=== PATIENT | female | born 1965 | race Caucasian/White ===

== ENCOUNTER 2021-08-21 20:04 | Inpatient (IN) ==
[2021-08-22] MEDS ORDERED: Acetaminophen 325 MG TABLET PO PRN (00:35)
[2021-08-22] MEDS ORDERED: Naloxone 0.4 MG/ML INJ IVP PRN (00:35)
[2021-08-22] MEDS ORDERED: Melatonin 3 MG TABLET PO PRN (00:35)
[2021-08-22] MEDS: *HR* HYDROcodone/Acet 5/325 mg TABLET PO PRN ×2 (01:08→11:34)
[2021-08-22] MEDS ORDERED: Isovue-370 500 ML BOTTLE IVP ONE (01:35)
[2021-08-22] MEDS ORDERED: *HR* HYDROmorphone (PF) 1 MG/ML SYRINGE IVP ONE (02:21)
[2021-08-22] MEDS ORDERED: Morphine Sulfate 2 MG/ML SYRINGE IVP ONE (05:36)
[2021-08-22 06:33] LABS: Hematocrit 40.5 % (35.3-44.9); Hemoglobin 12.8 g/dL (11.5-15.4); Mean Corpuscular HGB Conc 31.6 g/dL (31.6-35.5); Mean Corpuscular Volume 88.6 fL (83.0-100.0); Platelet Count 295 K/mcL (140-400); Red Blood Count 4.57 M/mcL (3.82-4.97); Red Cell Distribution Width 12.8 % (11.5-14.5); White Blood Count 9.8 K/mcL (4.3-11.1)
[2021-08-22 06:34] LABS: Basophils # 0.1 K/mcL (0.0-0.2); Basophils % 0.5 %; Eosinophils # 0.2 K/mcL (0.0-0.6); Immature Granulocytes % 0.4 % (0-4); Monocytes % 9.9 %; Neutrophils # 6.6 K/mcL (1.6-8.9); Segmented Neutrophils % 67.2 %
[2021-08-22 06:50] LABS: INR 1.1; Prothrombin Time 12.4 Seconds (9.4-12.1)
[2021-08-22 06:53] LABS: Activated Partial Thrombo Time 33.5 Seconds (26.0-36.0)
[2021-08-22 06:55] LABS: BUN/Creatinine Ratio 11 (6-26); Blood Urea Nitrogen 7 mg/dL (6-20); Calcium 8.7 mg/dL (8.6-10.3); Carbon Dioxide 28 mEq/L (23-29); Chloride 105 mEq/L (98-107); Glucose 103 mg/dL (70-105); Magnesium 2.3 mg/dL (1.6-2.6); Osmolality,Calculated 288 (280-300); Potassium 4.1 mEq/L (3.5-5.1); Sodium 140 mEq/L (136-145); eGFR For African Americans > 60 (> 60); eGFR For Non-African Americans > 60 (> 60)
[2021-08-22] MEDS: MetroNIDAZOLE 500 MG/100 ML 500 MG/100 ML BAG IVPB SCH ×2 (09:03→16:47)
[2021-08-22] MEDS: Ondansetron ODT 4 MG TAB.RAPDIS SL PRN ×2 (11:34→20:27)
[2021-08-22] MEDS: 0.9 % Sodium Chloride 1,000 ML IVC SCH (16:47)
[2021-08-22] MEDS: FLUoxetine 20 MG CAPSULE PO SCH (19:56)
[2021-08-23] MEDS: MetroNIDAZOLE 500 MG/100 ML 500 MG/100 ML BAG IVPB SCH ×4 (00:50→23:05)
[2021-08-23 06:23] LABS: Basophils # 0.1 K/mcL (0.0-0.2); Basophils % 0.5 %; Eosinophils # 0.2 K/mcL (0.0-0.6); Eosinophils % 1.7 %; Hematocrit 37.9 % (35.3-44.9); Immature Granulocytes % 0.3 % (0-4); Lymphocytes # 1.9 K/mcL (0.6-4.6); Lymphocytes % 16.4 %; Mean Corpuscular HGB Conc 31.7 g/dL (31.6-35.5); Mean Corpuscular Volume 88.3 fL (83.0-100.0); Mean Platelet Volume 10.5 fL (9.4-12.4); Monocytes # 0.9 K/mcL (0.0-1.3); Monocytes % 7.9 %; Neutrophils # 8.6 K/mcL (1.6-8.9); Platelet Count 298 K/mcL (140-400); Red Blood Count 4.29 M/mcL (3.82-4.97); Red Cell Distribution Width 12.3 % (11.5-14.5); Segmented Neutrophils % 73.2 %; White Blood Count 11.7 K/mcL (4.3-11.1)
[2021-08-23 06:28] LABS: INR 1.2; Prothrombin Time 13.2 Seconds (9.4-12.1)
[2021-08-23 06:39] LABS: BUN/Creatinine Ratio 15 (6-26); Blood Urea Nitrogen 8 mg/dL (6-20); Calcium 8.9 mg/dL (8.6-10.3); Carbon Dioxide 25 mEq/L (23-29); Chloride 104 mEq/L (98-107); Glucose 81 mg/dL (70-105); Osmolality,Calculated 283 (280-300); Potassium 3.8 mEq/L (3.5-5.1); Sodium 138 mEq/L (136-145); eGFR For African Americans > 60 (> 60); eGFR For Non-African Americans > 60 (> 60)
[2021-08-23] MEDS ORDERED: Fluconazole 400 MG/200 ML 400 MG/200 ML BAG IVPB SCH (09:00)
[2021-08-23] MEDS ORDERED: estradioL 0.5 MG TABLET PO SCH (09:00)
[2021-08-23] MEDS: 0.9 % Sodium Chloride 1,000 ML IVC SCH ×2 (09:12→17:09)
[2021-08-23] MEDS: FLUoxetine 20 MG CAPSULE PO SCH (09:14)
[2021-08-23] MEDS ORDERED: Ringers Solution, Lactated 1,000 ML IVC SCH (10:00)
[2021-08-23] MEDS ORDERED: Ondansetron 4 MG/2 ML VIAL IVP PRN (10:01)
[2021-08-23] MEDS ORDERED: *HR* FentaNYL (PF) 100 MCG/2 ML VIAL ONE (10:47)
[2021-08-23] MEDS ORDERED: *HR* Midazolam HCl 2 MG/2 ML VIAL ONE (10:48)
[2021-08-23] MEDS ORDERED: *HR* Propofol 200 MG/20 ML VIAL IVP ONE (10:48)
[2021-08-23] MEDS ORDERED: Lidocaine -MPF 2% 5 ML VIAL ONE (10:50)
[2021-08-23] MEDS ORDERED: Ondansetron 4 MG/2 ML VIAL ONE ×2 (10:52→14:30)
[2021-08-23] MEDS ORDERED: *HR* Rocuronium Bromide 50 MG/5 ML VIAL ONE ×2 (10:52→13:03)
[2021-08-23] MEDS ORDERED: Lidocaine HCL 4 ML Topical Solution (Laryng-O-Jet Kit Sterile Pak) TP ONE (10:52)
[2021-08-23] MEDS ORDERED: EPHEDrine 50 MG/ML VIAL ONE (11:47)
[2021-08-23] MEDS ORDERED: *HR* HYDROMORPHONE 2 MG/ML VIAL ONE (13:48)
[2021-08-23] MEDS ORDERED: Sugammadex Sodium 200 MG/2 ML VIAL IV ONE (13:48)
[2021-08-23] MEDS ORDERED: *HR* HYDROmorphone PF 0.5 MG/0.5 ML SYRINGE ONE ×2 (14:27→14:42)
[2021-08-23] MEDS: *HR* HYDROmorphone PF 0.5 MG/0.5 ML SYRINGE IVP PRN ×2 (14:29→14:43)
[2021-08-23] MEDS ORDERED: Naloxone 0.4 MG/ML INJ IVP PRN (15:14)
[2021-08-23] MEDS: Ketorolac 30 MG/ML VIAL IVP SCH ×2 (17:10→23:02)
[2021-08-23] MEDS: Acetaminophen IV 1,000 MG/100 ML BAG IVPB SCH ×2 (18:32→23:03)
[2021-08-24] MEDS: Ketorolac 30 MG/ML VIAL IVP SCH ×4 (05:24→23:08)
[2021-08-24] MEDS: Acetaminophen IV 1,000 MG/100 ML BAG IVPB SCH ×4 (05:25→23:08)
[2021-08-24] MEDS: 0.9 % Sodium Chloride 1,000 ML IVC SCH ×2 (05:27→18:18)
[2021-08-24 06:40] LABS: Basophils % 0.4 %; Eosinophils % 0.4 %; Hematocrit 32.2 % (35.3-44.9); Immature Granulocytes % 0.3 % (0-4); Lymphocytes # 1.7 K/mcL (0.6-4.6); Lymphocytes % 17.4 %; Mean Corpuscular HGB Conc 32.3 g/dL (31.6-35.5); Mean Corpuscular Hemoglobin 28.4 pg (28.0-33.3); Mean Platelet Volume 10.5 fL (9.4-12.4); Monocytes # 1.5 K/mcL (0.0-1.3); Monocytes % 15.1 %; Neutrophils # 6.5 K/mcL (1.6-8.9); Platelet Count 316 K/mcL (140-400); Red Blood Count 3.66 M/mcL (3.82-4.97); Red Cell Distribution Width 12.3 % (11.5-14.5); Segmented Neutrophils % 66.4 %; White Blood Count 9.8 K/mcL (4.3-11.1)
[2021-08-24 06:41] LABS: Hemoglobin 10.4 g/dL (11.5-15.4)
[2021-08-24 07:29] LABS: BUN/Creatinine Ratio 19 (6-26); Blood Urea Nitrogen 9 mg/dL (6-20); Calcium 7.9 mg/dL (8.6-10.3); Carbon Dioxide 26 mEq/L (23-29); Chloride 106 mEq/L (98-107); Glucose 106 mg/dL (70-105); Magnesium 1.7 mg/dL (1.6-2.6); Osmolality,Calculated 285 (280-300); Potassium 3.7 mEq/L (3.5-5.1); Sodium 138 mEq/L (136-145); eGFR For African Americans > 60 (> 60); eGFR For Non-African Americans > 60 (> 60)
[2021-08-24] MEDS: MetroNIDAZOLE 500 MG/100 ML 500 MG/100 ML BAG IVPB SCH ×3 (09:15→23:43)
[2021-08-24] MEDS: Pantoprazole 40 MG VIAL IVP SCH (09:16)
[2021-08-24] MEDS: Fluconazole 400 MG/200 ML 400 MG/200 ML BAG IVPB SCH (09:16)
[2021-08-24] MEDS ORDERED: Famotidine 20 MG/2 ML VIAL IVP ONE (19:58)
[2021-08-24] MEDS ORDERED: Prochlorperazine 10 MG/2 ML VIAL IVP PRN (23:16)
[2021-08-25] MEDS: *HR* LORazepam 2 MG/ML VIAL IVP PRN (04:03)
[2021-08-25 05:12] LABS: Basophils # 0.1 K/mcL (0.0-0.2); Basophils % 0.5 %; Eosinophils # 0.4 K/mcL (0.0-0.6); Eosinophils % 3.1 %; Hematocrit 28.2 % (35.3-44.9); Hemoglobin 9.5 g/dL (11.5-15.4); Immature Granulocytes % 0.4 % (0-4); Lymphocytes # 1.4 K/mcL (0.6-4.6); Lymphocytes % 10.6 %; Mean Corpuscular HGB Conc 33.7 g/dL (31.6-35.5); Mean Corpuscular Hemoglobin 29.4 pg (28.0-33.3); Mean Corpuscular Volume 87.3 fL (83.0-100.0); Mean Platelet Volume 9.7 fL (9.4-12.4); Monocytes # 1.4 K/mcL (0.0-1.3); Monocytes % 10.6 %; Neutrophils # 9.9 K/mcL (1.6-8.9); Platelet Count 305 K/mcL (140-400); Red Blood Count 3.23 M/mcL (3.82-4.97); Red Cell Distribution Width 12.7 % (11.5-14.5); Segmented Neutrophils % 74.8 %; White Blood Count 13.3 K/mcL (4.3-11.1)
[2021-08-25] MEDS: 0.9 % Sodium Chloride 1,000 ML IVC SCH ×5 (05:15→23:04)
[2021-08-25] MEDS: Acetaminophen IV 1,000 MG/100 ML BAG IVPB SCH ×2 (05:16→12:12)
[2021-08-25] MEDS: Ketorolac 30 MG/ML VIAL IVP SCH ×4 (05:16→23:04)
[2021-08-25 05:24] LABS: BUN/Creatinine Ratio 21 (6-26); Blood Urea Nitrogen 9 mg/dL (6-20); Calcium 7.6 mg/dL (8.6-10.3); Carbon Dioxide 25 mEq/L (23-29); Chloride 105 mEq/L (98-107); Glucose 110 mg/dL (70-105); Magnesium 1.7 mg/dL (1.6-2.6); Osmolality,Calculated 285 (280-300); Potassium 3.5 mEq/L (3.5-5.1); Sodium 138 mEq/L (136-145); eGFR For African Americans > 60 (> 60); eGFR For Non-African Americans > 60 (> 60)
[2021-08-25] MEDS: FLUoxetine 20 MG CAPSULE PO SCH ×2 (09:49→20:11)
[2021-08-25] MEDS: Pantoprazole 40 MG VIAL IVP SCH (09:50)
[2021-08-25] MEDS: Fluconazole 400 MG/200 ML 400 MG/200 ML BAG IVPB SCH (09:51)
[2021-08-25] MEDS: metroNIDAZOLE 500 MG TABLET PO SCH ×3 (10:09→20:11)
[2021-08-25] MEDS: MetroNIDAZOLE 500 MG/100 ML 500 MG/100 ML BAG IVPB SCH (10:36)
[2021-08-26 03:23] LABS: Basophils # 0.1 K/mcL (0.0-0.2); Basophils % 0.6 %; Eosinophils # 0.7 K/mcL (0.0-0.6); Eosinophils % 5.3 %; Hematocrit 24.2 % (35.3-44.9); Immature Granulocytes % 0.4 % (0-4); Lymphocytes # 2.2 K/mcL (0.6-4.6); Lymphocytes % 18.1 %; Mean Corpuscular HGB Conc 33.1 g/dL (31.6-35.5); Mean Corpuscular Hemoglobin 28.7 pg (28.0-33.3); Mean Corpuscular Volume 86.7 fL (83.0-100.0); Mean Platelet Volume 9.7 fL (9.4-12.4); Monocytes # 1.1 K/mcL (0.0-1.3); Monocytes % 8.9 %; Neutrophils # 8.2 K/mcL (1.6-8.9); Platelet Count 319 K/mcL (140-400); Red Blood Count 2.79 M/mcL (3.82-4.97); Red Cell Distribution Width 12.7 % (11.5-14.5); Segmented Neutrophils % 66.7 %; White Blood Count 12.3 K/mcL (4.3-11.1)
[2021-08-26 03:43] LABS: BUN/Creatinine Ratio 15 (6-26); Blood Urea Nitrogen 6 mg/dL (6-20); Calcium 7.7 mg/dL (8.6-10.3); Carbon Dioxide 27 mEq/L (23-29); Chloride 107 mEq/L (98-107); Glucose 103 mg/dL (70-105); Magnesium 1.7 mg/dL (1.6-2.6); Osmolality,Calculated 290 (280-300); Sodium 141 mEq/L (136-145); eGFR For African Americans > 60 (> 60); eGFR For Non-African Americans > 60 (> 60)
[2021-08-26] MEDS: Ketorolac 30 MG/ML VIAL IVP SCH ×4 (05:28→23:38)
[2021-08-26] MEDS: 0.9 % Sodium Chloride 1,000 ML IVC SCH ×3 (07:08→21:55)
[2021-08-26] MEDS: metroNIDAZOLE 500 MG TABLET PO SCH ×3 (07:09→20:11)
[2021-08-26] MEDS: FLUoxetine 20 MG CAPSULE PO SCH ×2 (07:09→20:11)
[2021-08-26] MEDS: Pantoprazole 40 MG VIAL IVP SCH (07:10)
[2021-08-26] MEDS: Fluconazole 100 MG TABLET PO SCH (08:03)
[2021-08-26] MEDS ORDERED: Cyanocobalamin (B-12) 1,000 MCG/ML VIAL SQ ONE (13:35)
[2021-08-26] MEDS ORDERED: Iron Sucrose Complex 250 MG in 0.9 % Sodium Chloride 250 ML IVPB ONE (13:35)
[2021-08-26] MEDS ORDERED: Prochlorperazine 10 MG/2 ML VIAL IVP PRN (21:39)
[2021-08-26] MEDS: *HR* LORazepam 2 MG/ML VIAL IVP PRN (21:43)
[2021-08-27 04:59] LABS: Basophils # 0.1 K/mcL (0.0-0.2); Basophils % 0.7 %; Eosinophils # 0.6 K/mcL (0.0-0.6); Hematocrit 25.3 % (35.3-44.9); Hemoglobin 8.4 g/dL (11.5-15.4); Immature Granulocytes % 0.7 % (0-4); Lymphocytes # 1.9 K/mcL (0.6-4.6); Lymphocytes % 17.7 %; Mean Corpuscular HGB Conc 33.2 g/dL (31.6-35.5); Mean Corpuscular Hemoglobin 28.5 pg (28.0-33.3); Mean Corpuscular Volume 85.8 fL (83.0-100.0); Mean Platelet Volume 9.1 fL (9.4-12.4); Monocytes # 0.9 K/mcL (0.0-1.3); Monocytes % 8.3 %; Neutrophils # 7.1 K/mcL (1.6-8.9); Platelet Count 377 K/mcL (140-400); Red Blood Count 2.95 M/mcL (3.82-4.97); Red Cell Distribution Width 13.2 % (11.5-14.5); Segmented Neutrophils % 66.6 %; White Blood Count 10.7 K/mcL (4.3-11.1)
[2021-08-27] MEDS: Ketorolac 30 MG/ML VIAL IVP SCH (05:18)
[2021-08-27 05:20] LABS: BUN/Creatinine Ratio 7 (6-26); Blood Urea Nitrogen 3 mg/dL (6-20); Carbon Dioxide 25 mEq/L (23-29); Chloride 108 mEq/L (98-107); Glucose 109 mg/dL (70-105); Magnesium 1.6 mg/dL (1.6-2.6); Osmolality,Calculated 293 (280-300); Potassium 3.1 mEq/L (3.5-5.1); Sodium 143 mEq/L (136-145); eGFR For African Americans > 60 (> 60); eGFR For Non-African Americans > 60 (> 60)
[2021-08-27] MEDS: 0.9 % Sodium Chloride 1,000 ML IVC SCH (07:14)
[2021-08-27] MEDS: FLUoxetine 20 MG CAPSULE PO SCH (07:39)
[2021-08-27] MEDS: Fluconazole 100 MG TABLET PO SCH (07:39)
[2021-08-27] MEDS: Pantoprazole 40 MG VIAL IVP SCH (07:39)
[2021-08-27] MEDS: metroNIDAZOLE 500 MG TABLET PO SCH (07:39)
[2021-08-27] MEDS ORDERED: Potassium Chloride Elixir 20 MEQ/15 ML UDC PO SCH (09:00)
[2021-08-27 12:29] VITALS: BP 148/74; PULSE 77; TEMP 98.1; O2SAT 98
== END 2021-08-27 13:20 | disposition home or self-care (01) | DRG 330 ==
LOC: 3ANU → SUATTDRO 08-22 00:06
PROVIDERS: ADMIT Family Medicine; ATTEND Pharmacist